=== PATIENT | male | born 1965 | race Caucasian/White ===

== ENCOUNTER 2021-04-10 11:08 | Emergency (ER) | payer MEDICAID, SELFPAY ==
--- NOTE | ~2021-04-10 | CT_ITS ---
EXAMINATION: CT HEAD WITHOUT CONTRAST CLINICAL INFORMATION: Visual loss. Rule out mass or CVA COMPARISON: None TECHNIQUE: Contiguous axial imaging was performed from the skull base to vertex without intravenous administration of contrast. This CT examination was performed using dose optimization techniques as appropriate, variously including the following: *Automated exposure control *Adjustment of mA and/or kV according to patient size (this includes techniques or standardized protocols for targeted exams where dose is matched to indication/reason for exam; i.e. extremities or head) *Use of iterative reconstruction technique DLP: 641 mGy-cm FINDINGS: There is no evidence of acute intracranial hemorrhage or territorial infarction. No abnormal mass effect or midline shift is seen. [place] to white matter differentiation is well preserved. No extra-axial fluid collections are identified. The ventricles are normal in size. There is no abnormal attenuation within the brain parenchyma. The osseous structures and soft tissues are normal. The mastoid air cells and visualized portions of the paranasal sinuses are well aerated. CT/CT head/brain wo con IMPRESSION: Unremarkable exam.
[2021-04-10 11:42] VITALS: BP 176/107; PULSE 99; RESP 14; TEMP 36.7; O2SAT 97; BMI 21.7
[2021-04-10] MEDS: Tetracaine HCl/PF 0.5% Oph Sol 4 ML DROPS 3 DROP EYE-BOTH (14:53)
[2021-04-10] MEDS: Fluorescein Sodium STRIP 1 STRIP EYE-BOTH (14:53)
[2021-04-10 15:18] VITALS: BP 179/107; PULSE 87; RESP 16; TEMP 37.2; O2SAT 98
--- NOTE | 2021-04-10 15:36 | PC.NURSE ---
BILATERAL OCULAR PRESSURES WNL PER PA [facility]
--- NOTE | 2021-04-10 15:39 | ED_ITS ---
HPI - Eye Problem General Chief complaint: Eye Problems Stated complaint: eye sight Time Seen by Provider: 04/10/21 14:23 Source: patient Mode of arrival: ambulatory History of Present Illness HPI Narrative: 55-year-old male with no significant past medical history presenting to the ED complaining of bilateral blurry/hazy vision worsening over the past few months. Reports right eye visual loss x years, left eye since [place]. Admits to history of right eye trauma from box falling on face 6 years ago. Denies new or recent trauma. Does not were glasses or contacts. States has not seen in years and or therapist's assistant secondary to not having insurance. Denies ocular pain, drainage, erythema, headache, chest pain, numbness, tingling chief complaint: vision change Related Data Allergies Allergy/AdvReac Type Severity Reaction Status Date / Time No Known Allergies Allergy Verified 04/10/21 11:46 Review of Systems Review of Systems: Constitutional: No Fever, No Chills, No Malaise ENT/Mouth: No Ear Pain, No Nasal Congestion, No sore throat, No Swallowing Difficulty Eyes: No Eye Pain, No Swelling, No Redness, No Foreign Body, No Discharge, + Vision Changes Cardiovascular: No Chest Pain, No SO Respiratory: No Cough, No Dyspnea Gastrointestinal: No Nausea, No Vomiting, No Abdominal pain Musculoskeletal: No joint pain, No Myalgias, No Joint Swelling Skin: No Skin Lesions, No rash Neuro: No Weakness, No Numbness, No Paresthesias, No Loss of Consciousness, No Dizziness, No Headache Yes all other systems are reviewed and are negative Eyes: Eyes: Denies photophobia PMFSH Past Medical History Attestation statement: The following information was validated with the patient. Medical History (Updated 04/10/21 @ 17:08 by CAROL Roger) No known health problems Social History Social History Advance Directives: No Advance Directives Information Provided: No Physical Exam Vital Signs: Vital Signs: Last Vital Signs Temp 98.9 F 04/10/21 15:18 Pulse 87 04/10/21 15:18 Resp 16 04/10/21 15:18 BP 179/107 H 04/10/21 15:18 Pulse Ox 98 04/10/21 15:18 Body Mass Index 21.7 Const: General: cooperative, healthy appearing and no acute distress Orientation/consciousness: patient oriented x3 Limitations: no limitations HENMT: Head: Yes normal to inspection Ears: hearing grossly normal bilaterally General nose exam: Normal external nose present Face and sinus: Yes normal facial exam Eyes: Other: Left eye with slight bulging Visual acuity 20/200 bilaterally, Right eye able to see hand waving and light. Left eye able to read hand numbers Right eye IOP: 18, 16, 19 Left eye IOP: 17, 19, 21 Bilateral fluorescein staining used without uptake General: appearance normal, both eyes and all related structures Eyelids: Yes eyelids normal Corneas: fluorescein used Pupils: Equal, round and reactive pupils present EOM: EOMs intact bilaterally Direct Ophthalmoscopy: normal light reflex and No photophobia Neck: Neck: Yes normal visual inspection and Yes full ROM Resp: Effort & Inspection: normal respiratory effort and not labored Cardio: Rate: regular rate Heart sounds: S1 normal heart sound present and S2 normal heart sound present GI: Inspection: Yes normal to inspection Skin: Rashes: no rashes Wounds: no wounds Neuro: General: patient oriented x3, tone normal and moves all extremities Cranial nerves: Yes Equal, round and reactive pupils present Gait exam (Neuro): Normal gait present Extrem: General: Yes normal to inspection Course Course Course Narrative: CT head/brain wo con IMPRESSION: Unremarkable exam. >> results discussed with patient including worrisome signs and symptoms and strict return precautions. Patient is to have close follow-up with Ophthalmology. Referral/names given MDM - Eye Problem MDM Narrative Medical decision making narrative: 55-year-old male with no significant past medical history presenting to the ED complaining of bilateral blurry/hazy vision worsening over the past few months. On exam hypertensive, NAD, nontoxic appearing, physical exam as above. Concern for glaucoma vs hypertensive retinopathy vs macular degeneration vs optic nerve lesion or subacute mass/CVA Plan: Head CT, fluorescein staining, IOP Discharge Plan Discharge Clinical Impression: Blurred vision, bilateral, Hypertension Patient Disposition: Home, Self-Care Instructions: Blurred Vision (ED) Additional Instructions: Your head CT was unremarkable Your ocular pressures were okay There is no scratches seen in your eyes You need to follow-up with an therapist's assistant as soon as possible, call to make an appointment If her symptoms worsen you develop fever, ocular pain, nausea, vomiting, headache, or chest pain please return to the ED immediately You also were notably hypertensive/have high blood pressure today in the emergency department you need to establish care with a primary care doctor Referrals: Jose A Razo [Physician] - 2 days Pauline Pacheco MD [Physician] - 2 days Hannah Khan MD [Physician] - 2 days Pop Pereira MD [Physician] - 2 days Cy Vaughan OD [Physician] - 2 days Antwon Newman MD [Physician] - 2 days Héctor Webb MD [Physician] - 2 days Niurka Chiu NP [Nurse Practitioner] - 2 days
[2021-04-10 17:08] VITALS: BP 161/102; PULSE 99; RESP 16; TEMP 37.2; O2SAT 97
== END 2021-04-10 17:14 | disposition home or self-care (01) ==
PROVIDERS: Emergency Provider Emergency Medicine
DX: H53.8 Other visual disturbances (principal); I10 Essential (primary) hypertension
CPT/HCPCS: 70450; 99284